=== PATIENT | male | born 1985 | race Caucasian/White ===

== ENCOUNTER 2016-08-28 12:49 | Emergency (ER) | payer SELFPAY ==
[~2016-08-28] VITALS: Ht 180.3 cm; Wt 100.0 kg
[2016-08-28 12:50] VITALS: BP 158/63; TEMP 97.7
[2016-08-28] MEDS ORDERED: BACTRIM DS 8001 TAB PO (15:16)
[2016-08-28 15:26] VITALS: PULSE 84
== END 2016-08-28 15:26 | disposition home or self-care (01) ==
LOC: COL.ER 12:49
DX: L03.116 Cellulitis of left lower limb (principal); B35.3 Tinea pedis; F17.210 Nicotine dependence, cigarettes, uncomplicated